=== PATIENT | female | born 1995 | race Caucasian/White ===

== ENCOUNTER 2017-04-02 10:31 | Emergency (ER) | END 2017-04-02 13:29 | disposition home or self-care (01) ==

== ENCOUNTER 2017-06-22 14:15 | Inpatient (IN) | END 2017-06-24 20:45 | disposition home or self-care (01) | DRG 781 ==

== ENCOUNTER 2017-07-05 18:45 | Outpatient (CLI) | END 2017-07-05 22:32 | disposition home or self-care (01) ==

== ENCOUNTER 2017-07-26 21:18 | Outpatient (CLI) | END 2017-07-27 01:44 | disposition home or self-care (01) ==

== ENCOUNTER 2017-07-27 01:48 | Emergency (ER) | END 2017-07-27 04:00 | disposition home or self-care (01) ==

== ENCOUNTER 2017-07-31 08:03 | Outpatient (CLI) | END 2017-07-31 09:20 | disposition home or self-care (01) ==

== ENCOUNTER 2017-08-18 22:00 | Inpatient (IN) | END 2017-08-22 13:50 | disposition home or self-care (01) | DRG 781 ==

== ENCOUNTER 2017-09-13 01:19 | Inpatient (IN) | END 2017-09-14 21:15 | disposition home or self-care (01) | DRG 781 ==

== ENCOUNTER 2017-10-02 09:08 | Outpatient (CLI) | END 2017-10-02 11:30 | disposition home or self-care (01) ==

== ENCOUNTER 2017-10-06 18:32 | Outpatient (CLI) | END 2017-10-06 21:35 | disposition home or self-care (01) ==

== ENCOUNTER 2017-10-16 11:39 | Outpatient (CLI) | END 2017-10-16 14:40 | disposition home or self-care (01) ==

== ENCOUNTER 2017-10-20 18:05 | Inpatient (IN) | END 2017-10-23 20:00 | disposition home or self-care (01) | DRG 775 ==